=== PATIENT | female | born 1995 | race Asian ===

== ENCOUNTER 2021-04-24 17:00 | Emergency (ER) | payer BC, SELFPAY ==
[2021-04-24 17:01] VITALS: BP 127/96; PULSE 99; RESP 18; TEMP 36.3; O2SAT 97; BMI 25.7
--- NOTE | 2021-04-24 18:36 | CT_ITS ---
INDICATION: submental abscess after dental extraction EXAMINATION: CT Maxillofacial W/ Contrast Injection TECHNIQUE: Helically acquired images were obtained of the facial bones. A radiation dose optimization technique was used for this scan. IV Contrast dosage and agent: None. COMPARISON: None. FINDINGS: SOFT TISSUES: There is a thin-walled rim-enhancing oblong fluid collection which is difficult to measure but measures approximately 9 cm in total length. It is in the left submandibular space with a small portion likely also within the left sublingual space. Part of the collection wraps laterally and posteriorly around the left submandibular gland which is slightly anteriorly displaced. Part of it is also anterior to the left sternocleidomastoid muscle.. There is minimal surrounding fat stranding. VISUALIZED PARANASAL SINUSES: Clear. VISUALIZED MASTOID AIR CELLS: Clear. FACIAL BONES, MANDIBLE AND TMJs: No displaced facial bone fracture. No lytic or blastic abnormality. VISUALIZED DENTITION: Status post removal of wisdom teeth. No obvious periapical lucencies. ORBITAL CONTENTS: Both globes, extraocular muscles and retrobulbar fat appear unremarkable. LYMPHADENOPATHY: Prominent left level 2A cervical lymph nodes. CT/Sinus/Facial Bone WITH Contras IMPRESSION: Thin-walled rim-enhancing fluid collection in the left submandibular and sublingual space with minimal surrounding inflammatory changes. Differential includes abscess, infected or noninfected second brachial cleft cyst, or infected or noninfected plunging rannula. Electronically Signed: John West MD at 20:44 EST Tel , Service support ,
--- NOTE | 2021-04-24 18:40 | EX.ED.DYSGE1 ---
HPI History of Present Illness Chief Complaint: Abscess Informant: patient Onset/Context/Timing Onset: Days Context: Gradual Onset Timing: Continuous Current Severity: Mild Maximum Severity: Mild Narrative Narrative: 25-year-old female no seen past medical history. Over 3 weeks ago she had 4 wisdom teeth removed by Dr. Jensen an oral surgeon in [place], [place]. Patient had teeth resected was doing well on Saturday 3 weeks of the day she started having swelling below her jaw. Was seen in urgent care they put her on penicillin. Spoke to her oral surgeon who started her on metronidazole. She said are not improving the swelling. She denies any trouble breathing or swallowing. She has had no vomiting or diarrhea but has had low-grade fevers. Prior similar symptoms: No Recent Illness/Hospitalization: No PFSH PFSH Medical History no medical history no medical history Allergy/AdvReac Type Severity Reaction Status Date / Time nut - unspecified Allergy Hives Verified 04/24/21 17:03 Social History Smoking Status: Never smoker ROS ROS ED ROS Narrative Fevers. Submental swelling. Review of Systems ROS Unobtainable: Denies due to encephalopathy Constitutional Constitutional ED: Reports fever(s) Eyes Eyes: Denies change in vision ENT ENT ED: Denies ear pain Cardiovascular Cardiovascular: Denies chest pain Respiratory/Chest Respiratory/Chest: Denies dyspnea Gastrointestinal Gastrointestinal: Denies abdominal pain Genitourinary Genitourinary ED: Denies dysuria Musculoskeletal Musculoskeletal: Denies myalgias Integumentary Denies rash Neurologic Neurologic: Denies headache(s) Psychiatric Psychiatric: Denies depression Endocrine Endocrinology: Denies polyuria Allergic/Immunologic Allergic/Immunologic ED: Denies urticaria EXAM Physical Exam Narrative Exam Narrative: 25-year-old female no acute distress vital signs stable afebrile does not septic. H. Has a very is normal. No trouble breathing or swallowing. No drooling. No stridor. Airway patent. The lower jaw submental region there is swelling. Below her tongue is nontender nonswollen. Neck fullness just below the chin. Trachea midline. Lungs clear to auscultation. Heart regular rhythm no murmur. Abdomen soft nontender. Otherwise exam unremarkable. Const Vital Signs: 04/24/21 17:01 Temperature 97.4 F L Temperature Source Temporal Pulse Rate 99 Respiratory Rate 18 Blood Pressure 127/96 H Blood Pressure Mean 106 Pulse Ox 97 Oxygen Delivery Method Room Air Positive well nourished and well developed; Negative for obese, cachectic, contractures or unkempt General Appearance ED: well developed and NAD; Negative for unkempt, cachectic, contractures or pallor Nutritional Appearance: Negative for cachectic or obese HEENT Reports moist mucous membranes Negative for tenderness Eyes PERRL and EOMs intact bilaterally Neck no lymphadenopathy, supple and no JVD General: Negative for tenderness Chest Wall inspection of chest normal and palpation of chest normal Resp normal respiratory effort and clear to auscultation bilaterally Auscultation: Negative for rales, rhonchi or diminished lung sounds Cardio regular rate, regular rhythm, S1 normal heart sound, S2 normal heart sound and no murmurs GI normal to inspection, nondistended, normoactive bowel sounds, non-tender, non-distended and no masses Auscultation: normoactive bowel sounds Palpation: soft; Negative for tender or guarding Back/Spine no CVA tenderness Extremity normal to inspection General Extremety ED: Negative for edema or tenderness General Extremity: Negative for edema Neuro oriented x3 Sensorium / Orientation: alert; Negative for lethargic or stuporous Motor Exam: strength 5/5 throughout Psych mental status grossly normal Appearance: Negative for unkempt Attitude: No agitated Mood & Affect: Negative for depressed, anxious or tearful Skin no rashes or lesions noted and no wounds General Skin Exam: Negative for jaundice or pallor MDM MDM MDM Narrative Medical decision making narrative: 25-year-old female with post dental extraction soft tissue infection. CAT scan being obtained labs. She will be given a dose of IV Zosyn. Repeat exam patient is doing well at 9:15 PM. She and I went over blood test results and her CAT scan. I spoke to the physician double end tenoner operator for her oral surgeon. He and I are both comfortable with her being discharged home. She will continue the current antibiotics and follow-up with her office tomorrow. I will get her a copy of the CAT scan to take with her. Lab Data Attestation: I reviewed the patient's lab results. Lab results narrative: CBC shows a normal white count of 6. Hemoglobin of 12.9. Electrolytes unremarkable gap of 10 normal BUN/creatinine. Normal glucose of 88. Labs: Laboratory Results - last 24 hr 04/24/21 04/24/21 18:50 18:50 WBC 6.8 RBC 5.08 Hgb 12.9 Hct 39.8 MCV 78.3 L MCH 25.4 L MCHC 32.4 RDW Std Deviation 41.1 RDW Coeff of Akanksha 14.5 Plt Count 348 MPV 9.2 Immature Gran % (Auto) 0.400 Neut % (Auto) 48.2 Lymph % (Auto) 34.2 [place] % (Auto) 10.7 H Eos % (Auto) 5.9 H Baso % (Auto) 0.6 Absolute Neuts (auto) 3.3 Absolute Lymphs (auto) 2.33 Nucleated RBC % 0 Sodium 141 Potassium 3.6 Chloride 103 Carbon Dioxide 28.0 Anion Gap 10 BUN 13 Creatinine 0.77 Estim Creat Clear Calc 92.39 Est GFR (MDRD) Af Amer 116 Est GFR (MDRD) Non-Af 96 BUN/Creatinine Ratio 16.8 Glucose 88 Calcium 9.1 Radiography Diagnostic Testing: Clinical Impression(s) from Imaging Studies Facial/Sinus 04/24/21 18:36 IMPRESSION: Thin-walled rim-enhancing fluid collection in the left submandibular and sublingual space with minimal surrounding inflammatory changes. Differential includes abscess, infected or noninfected second brachial cleft cyst, or infected or noninfected plunging rannula. Electronically Signed: John West MD at 20:44 EST Tel , Service support , Discharge Plan Triage Chief Complaint: Abscess ED Provider: Patrice Jenkins Dx/Rx/DC Orders Clinical Impression: Abscess Instructions: ED Abscess Antibiotic Treatment Only Primary Care Provider: Care Physician,No Primary Referrals: Care Physician,No Primary [Primary Care Provider] - Activity Restrictions/Additional Instructions: I spoke to the physician on-call for your oral surgeon. He said call their office first thing in the morning at 8 AM and they will see you tomorrow. Continue the current antibiotics. Take the copy of the CAT scan with you. Tylenol and Motrin for pain. Disposition Disposition: Home, Self Care
[2021-04-24 18:56] LABS: Absolute Lymphocyte Count 2.33 X10^3/uL (0.83-4.51); Absolute Neutrophil Count 3.3 X10^3/uL (2.0-7.7); Basophil# 0.04 X10^3/uL; Basophil% 0.6 % (0-1); Eosinophils% 5.9 % (0-5); Hematocrit 39.8 % (37-47); Hemoglobin 12.9 g/dL (12.0-15.0); Lymphocyte # 2.33 X10^3/ul (0.83-4.51); Lymphocyte % 34.2 % (19-41); Mean Corp Hgb Conc 32.4 g/dL (32-36); Mean Corpuscular Hgb 25.4 pg (27.0-32.0); Mean Corpuscular Volume 78.3 fL (81-99); Mean Platelet Vol. 9.2 fl (6.2-12.0); Monocyte# 0.73 X10^3/uL; Monocyte% 10.7 % (0-10); NRBC Flagged by Analyzer 0 % (0-5); Neutrophil # 3.29 X10^3/uL (2.7-7.7); Neutrophil % 48.2 % (47-70); Platelet Count 348 K/mm3 (150-450); RBC Distribution Width CV 14.5 % (11.6-14.6); RBC Distribution Width SD 41.1 fl (35.1-43.9); Red Blood Count 5.08 M/mm3 (4.2-5.4); White Blood Count 6.8 K/mm3 (4.4-11.0)
[2021-04-24 19:09] LABS: Anion Gap 10 (5-15); BUN 13 mg/dL (7-18); BUN/Creat Ratio 16.8 RATIO (10-20); Calcium,Total 9.1 mg/dL (8.5-10.1); Chloride 103 mmol/L (98-107); Creatinine, Serum 0.77 mg/dL (0.55-1.02); EST Glomerular Filtration Rate 96 mL/min (>60); Est Glom Filt Rate - Afr Amer 116 mL/min (>60); Estimated Creatinine Clearance 92.39 ml/min; Glucose 88 mg/dL (74-106); Potassium 3.6 mmol/L (3.5-5.1); Sodium Level 141 mmol/L (136-145)
[2021-04-24 21:32] VITALS: BP 119/78; PULSE 84; RESP 16; TEMP 36.7; O2SAT 97
== END 2021-04-24 21:40 | disposition home or self-care (01) ==
PROVIDERS: Emergency Provider Emergency Medicine; Visit Provider Emergency Medicine
DX: K04.7 Periapical abscess without sinus (principal)
CPT/HCPCS: 70487; 80048; 85025; 96365; 99282; J7050; Q9967; A4216